=== PATIENT | female | born 1950 | race Caucasian/White ===

== ENCOUNTER 2018-05-26 11:37 | Inpatient (IN) | payer OTHER ==
[2018-05-08 09:22] LABS: ABSOLUTE BASOPHILS 0.1 thou/uL (0.0-0.2); ABSOLUTE EOSINOPHILS 0.5 thou/uL (0.0-0.7); ABSOLUTE LYMPHOCYTES 3.2 thou/uL (0.8-5.3); ABSOLUTE MONOCYTES 0.6 thou/uL (0.0-1.2); ABSOLUTE NEUTROPHILS 4.4 thou/uL (1.6-8.1); BASOPHILS 0.9 %; EOSINOPHILS 5.2 %; HEMATOCRIT 41.1 % (37.0-47.0); HEMOGLOBIN 13.8 gm/dL (12.0-15.0); LYMPHOCYTES 36.7 %; MCH 31.8 pg (26.0-34.0); MCHC 33.6 g/dL (28.0-37.0); MCV 94.7 fL (80.0-100.0); MONOCYTES 6.9 %; MPV 7.9 fl. (7.2-11.1); NUCLEATED RBCS 0 /100WBC; PLATELET COUNT* 297 thou/uL (150-400); POLYS 50.3 %; RBC 4.34 mil/uL (4.20-5.00); RDW-CV 13.7 % (10.5-14.5); WBC 8.7 thou/uL (4.0-11.0)
[2018-05-08 09:44] LABS: APTT 26.8 Seconds (25.0-31.3); PROTIME 10.6 Seconds (9.20-11.50)
[2018-05-08 10:10] LABS: ALBUMIN 3.5 g/dL (3.4-5.0); CALCIUM 9.1 mg/dL (8.5-10.1); CREATININE 0.9 mg/dL (0.6-1.3); POTASSIUM 3.6 mmol/L (3.5-5.1); TOTAL BILIRUBIN 0.7 mg/dL (<0.1-1.0); TOTAL PROTEIN 7.1 g/dL (6.4-8.2)
[2018-05-08 11:13] LABS: ESR (SEDRATE) 20 mm/hr (0-30)
--- NOTE | 2018-05-08 16:41 | EKG ---
[place] [address] ELECTROCARDIOGRAM REPORT Name: SIRISHA SANTACRUZ Room: [facility].#: [id number] Admission: Attend Phys: Javad Garcia DO Discharge: Date of : 52 Report #: [id number] THIS REPORT FOR: //name// [facility] Test Date: 2018-05-08 Test Time: 09:42:35 Pat Name: SIRISHA SANTACRUZ Department: Room: Gender: F [employer]: : 1950 Requested By: Javad Garcia Order Number: [id number] Reading MD: Lenin Castellanos Measurements Intervals [place] Rate: 52 P: 57 CA: 164 QRS: -38 QRSD: 98 T: 58 QT: 444 QTc: 413 Interpretive Statements Sinus rhythm Left axis deviation No previous ECG available for comparison Electronically Signed On 05-08-2018 16:41:40 [employer] by Lenin Castellanos [email or web address] <ELECTRONICALLY SIGNED> By: Lenin Castellanos MD, [facility] 05/08/18 1641 0942 0942 Lenin Castellanos MD, FACC /EPI
[2018-05-08 21:13] LABS: GLYCOHEMOGLOBIN (HGB A1C) 5.7 % (4.8-5.6)
[~2018-05-26] VITALS: Ht 167.6 cm; Wt 75.7 kg
[~2018-05-26 11:37] MED LIST: ASPIR 8181 MG PO; BENTYL 10 MG CA10 M1 PO; FISH OIL 1,001000 M2 PO; LEXAPRO 10 MG T10 M1 PO; LOVASTATIN 20 M20 MG PO; MOBIC15 MG PO; MULTIVITAMINS1 EAC7 PO; PROTONIX40 M1 PO; VITAMIN B122500 MCG PO; VITAMIN D1000 UNI1 PO; XYZAL5 MG PO
[2018-05-26 13:41] VITALS: BP 144/58
[2018-05-26 18:05] VITALS: BP 122/52
[2018-05-26 20:25] VITALS: BP 98/74
[2018-05-27] VITALS: BP 114/54
[2018-05-27 04:00] VITALS: BP 104/57; BP 134/60
--- NOTE | 2018-05-27 07:03 | OP ---
[address] [address] OPERATIVE REPORT Name: SIRISHA SANTACRUZ Room: [address] IN M.R.#: [id number] Admission: 05/26/18 Attend Phys: Alessandro Stacy MD Discharge: Date of : 52 Report #: [id number] THIS REPORT FOR: //name// CC: Luly Stiles [facility] DICTATED BY: Ezekiel Chavarria DO DATE OF SERVICE: 05/26/2018 PREOPERATIVE DIAGNOSIS: Right shoulder end-stage rotator cuff arthropathy. POSTOPERATIVE DIAGNOSIS: Right shoulder end-stage rotator cuff arthropathy. PROCEDURE PERFORMED: Right reverse total shoulder arthroplasty. SURGEON: Javad Garcia DO HEEL BURNISHER: Ezekiel Chavarria DO [employer] FLOOR FINISHER: Agustin Venegas DO ANESTHESIA: General. ESTIMATED BLOOD LOSS: 100 mL. SPECIMENS: None. COMPLICATIONS: None. CONDITION: Stable. DISPOSITION: To PACU to be admitted to the orthopedic floor. IMPLANTS: The Biomet reverse total shoulder system with the following components: A size 9 mini humeral stem, 25 mm glenosphere mini baseplate, a 36 mm standard glenosphere, a 44 mm humeral tray, a 25 mm central screw and 2 nonlocking screws. INDICATIONS FOR PROCEDURE: The patient is a pleasant 68-year-old female who has been followed in the outpatient orthopedic clinic with longstanding right shoulder pain. She previously had a rotator cuff tear and now has progressed to rotator cuff arthropathy with glenohumeral DJD. She has tried conservative care for several months including corticosteroid injections, physical therapy, activity modifications and NSAID analgesia. Despite conservative care, she had [facility] [address] [place] [address] OPERATIVE REPORT Name: SIRISHA SANTACRUZ Room: [address] [place] M.R.#: [id number] Admission: 05/26/18 Attend Phys: Alessandro Stacy MD Discharge: Date of : 52 Report #: [id number] continued right shoulder pain. It is affecting her quality of life. We discussed further treatment options including surgical intervention with reverse total shoulder arthroplasty. Risks, benefits, complications and alternatives of the procedure were discussed with the patient in detail. Risks include, but not limited to, blood loss, PE, DVT, infection, failure of orthopedic implant, periprosthetic fracture, failure to alleviate symptoms, need for repeat surgery, and complication with anesthesia. The patient expressed understanding and wished to proceed. DESCRIPTION OF PROCEDURE: The patient was transferred to the operating suite and placed on the operating table in the supine position. She was given the benefit of general anesthesia. The patient was then placed into beach chair position. The right shoulder and upper extremity were then prepped and draped in the usual sterile fashion. A timeout was then taken to confirm the appropriate patient identification, operative site, procedure to be performed. All in the room were in agreement with timeout. A skin incision was then performed at the deltopectoral interval. The incision was carried down sharply to the level of the fat stripe and the cephalic vein. During soft tissue dissection, the cephalic vein was compromised and was thus ligated with a suture. The incision was then carried down to the level of the joint capsule. At this point, the rotator cuff was visible and there was noted to be a large tear at the supraspinatus that was retracted and macerated. The remainder of the rotator cuff including the subscapularis tendon was then reflected from bone and peeled medially, thus exposing the humeral head. Once the humeral head was exposed, medullary access was obtained. The humeral canal was then sequentially reamed to a size 9. The cutting guide was then put in place on the reamer and then pinned into place the proximal humerus. Proximal humeral cut was then performed through the cutting block in 30 degrees of retroversion. Once the humeral cut was performed, the humeral canal was then sequentially broached to a size 9. The size 9 humeral stem demonstrated good fill of the humerus and was seated in an appropriate level. We then elected to implant final size 9 mm stem. Attention was then addressed to the glenoid. Glenoid exposure was performed using electrocautery to debride soft tissue including the labrum off the glenoid. Appropriate retractors were placed. The glenoid guide was then positioned and the central guide screw was drilled into place. The glenoid was then reamed using a cannulated reamer with a guide pin in place. After reaming, the final 25 mm baseplate was malleted into place followed by the 25 mm central screw. We then inserted nonlocking screws at the inferior and superior holes through the base plate. This allowed for good compression of the baseplate and a solid fixation. The trial glenosphere was then put into place followed by the trial humeral [address] [address] OPERATIVE REPORT Name: SIRISHA SANTACRUZ JO Room: [address] M.R.#: [id number] Admission: 05/26/18 Attend Phys: Alessandro Stacy MD Discharge: Date of : 52 Report #: [id number]. The shoulder was reduced and taken through range of motion. The standard glenosphere allowed for full motion at the shoulder joint without any subluxation. The conjoined tendon was palpated and demonstrated appropriate tension. The trial components were then dislocated and removed. The shoulder was thoroughly irrigated. The final glenosphere was then malleted into place. The final humeral head was malleted into place afterward. With the final implants in place, the shoulder was reduced and taken through range of motion. Again, the shoulder demonstrated near full range of motion with good tensioning on the conjoined tendon and no evidence of subluxation. The shoulder was again thoroughly irrigated. The deltopectoral fascia was then reapproximated using #1 Vicryl. Subcutaneous tissue was closed using 2-0 Monocryl. Final skin layer was closed using a running 3-0 Stratafix and a skin glue. The patient tolerated the procedure well and was returned to PACU in stable condition. At the end of the procedure, needle and sponge counts were correct x 2. <ELECTRONICALLY SIGNED> By: Jesse Spencer DO 05/27/18 0703 1619 [id number] Garcia DO /eusebia
[2018-05-27 08:15] VITALS: BP 118/82
[2018-05-27 16:00] VITALS: BP 126/63
[2018-05-27 19:50] VITALS: BP 127/55
[2018-05-28 00:29] VITALS: BP 137/55
[2018-05-28 04:17] VITALS: BP 108/47
[2018-05-28 08:00] VITALS: BP 111/62
[2018-05-28] MEDS ORDERED: OXYCODONE HCL 55 MG PO (10:01)
[2018-05-28] MEDS ORDERED: ASPIR-TRIN325 MG PO (10:01)
[2018-05-28 10:03] VITALS: BP 111/62
== END 2018-05-28 14:02 | disposition home or self-care (01) | DRG 483 ==
LOC: M.SUR 11:37 → M.ORTHSURG 16:35 → M.TBA 16:35 → M.ORTHSURG 16:56
PROVIDERS: Orthopaedic Surgery; ADMIT Internal Medicine
PROC: 0RRJ00Z Replacement of Right Shoulder Joint with Reverse Ball and Socket Synthetic Substitute, Open Approach (ICD-10-PCS; principal; 2018-05-26)
DX: M19.011 Primary osteoarthritis, right shoulder (principal); M75.101 Unspecified rotator cuff tear or rupture of right shoulder, not specified as traumatic; F32.9 Major depressive disorder, single episode, unspecified; K21.9 Gastro-esophageal reflux disease without esophagitis; Z96.653 Presence of artificial knee joint, bilateral; Z88.0 Allergy status to penicillin; Z87.891 Personal history of nicotine dependence